=== PATIENT | female | born 2000 | race Hispanic/Latino ===

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

== ENCOUNTER 2019-12-19 19:50 | Emergency (ER) | payer SELFPAY ==
[2019-12-19 20:14] LABS: BASOPHILS % (AUTO) 0.2 % (0.0-5.0); EOSINOPHILS % (AUTO) 0.4 % (0.0-8.0); LYMPHOCYTES % (AUTO) 17.3 % (21.0-51.0); MEAN CORPUSCULAR HEMOGLOBIN 29.9 pg (27.0-33.0); MEAN CORPUSCULAR HGB CONC 33.4 g/dL (32.0-36.0); MEAN CORPUSCULAR VOLUME 89.5 fL (80-100); MONOCYTES % (AUTO) 6.7 % (3.0-13.0); NEUTROPHILS % (AUTO) 74.7 % (40.0-77.0); PLATELET COUNT (AUTO) 157 K/uL (130-400); RED BLOOD CELL COUNT(AUTO) 4.58 MIL/uL (4.00-5.50); WHITE BLOOD COUNT (AUTO) 12.3 K/uL (4.8-10.8)
[2019-12-19] MEDS ORDERED: SODIUM CHLORIDE 0.9% 1000ML 1,000 ML IV ONE (20:18)
[2019-12-19] MEDS ORDERED: ONDANSETRON HCL 4 MG/2 ML VIAL ONE (20:20)
[2019-12-19] MEDS ORDERED: KETOROLAC TROMETHAMINE 30MG/ML ONE (20:20)
[2019-12-19] MEDS ORDERED: LORAZEPAM 2 MG/ML 1 ML VIAL ONE (20:21)
[2019-12-19 20:31] LABS: CREATININE 0.9 mg/dL (0.5-1.5); POTASSIUM 3.6 mmol/L (3.5-5.1)
[2019-12-19 20:36] LABS: ALBUMIN 4.2 g/dL (3.5-5.0); BILIRUBIN,TOTAL 0.4 mg/dL (0.2-1.0); TOTAL PROTEIN, SERUM 7.6 g/dL (6.0-8.3)
[2019-12-19] MEDS ORDERED: IOHEXOL 350 MG/ML 100ML INFUS..BTL IV ONE (21:08)
== END 2019-12-19 22:46 | disposition home or self-care (01) ==
LOC: EDH 19:50
DX: S20.212A Contusion of left front wall of thorax, initial encounter (principal); S00.03XA Contusion of scalp, initial encounter; S00.83XA Contusion of other part of head, initial encounter; F43.0 Acute stress reaction; F31.9 Bipolar disorder, unspecified; F41.9 Anxiety disorder, unspecified; Z72.0 Tobacco use; Y04.2XXA Assault by strike against or bumped into by another person, initial encounter; Y93.89 Activity, other specified; Y92.89 Other specified places as the place of occurrence of the external cause; Y99.8 Other external cause status
CPT/HCPCS: 36415; 70450; 70486; 71260; 72125; 74177; 80053; 81025; 85025; 96374; 96375; 99285; J1885; J2060; J2405; J7030; Q9967

== ENCOUNTER 2020-02-03 13:30 | Emergency (ER) | payer SELFPAY ==
[2020-02-03] MEDS ORDERED: LORAZEPAM 2 MG/ML 1 ML VIAL ONE (13:44)
[2020-02-03 14:11] LABS: CARBON DIOXIDE 23 mmol/L (21-32); CHLORIDE 103 mmol/L (101-111); CREATININE 0.8 mg/dL (0.5-1.5); GLOMERULAR FILTR. RATE CALC 97 mL/min (>60); GLUCOSE,RANDOM 103 mg/dL (70-105); POTASSIUM 3.1 mmol/L (3.5-5.1); SODIUM SERUM 138 mmol/L (136-145); UREA NITROGEN, BLOOD 10 mg/dL (7-18)
[2020-02-03 14:15] LABS: ACETAMINOPHEN 4 mcg/mL (10-30); ALANINE AMINOTRANSFERASE 20 U/L (12-78); ALBUMIN 4.2 g/dL (3.5-5.0); ALCOHOL, BLOOD < 3 mg/dL (0-10); ASPARTATE AMINOTRANSFERASE 16 U/L (10-37); BILIRUBIN,TOTAL 0.3 mg/dL (0.2-1.0); CREATINE KINASE, TOTAL 93 U/L (21-232); TOTAL PROTEIN, SERUM 7.9 g/dL (6.0-8.3)
[2020-02-03 14:16] LABS: BASOPHILS % (AUTO) 0.2 % (0.0-5.0); EOSINOPHILS % (AUTO) 0.6 % (0.0-8.0); HEMATOCRIT 38.5 % (36-48); LYMPHOCYTES % (AUTO) 30.2 % (21.0-51.0); MEAN CORPUSCULAR HEMOGLOBIN 29.8 pg (27.0-33.0); MEAN CORPUSCULAR HGB CONC 33.2 g/dL (32.0-36.0); MEAN CORPUSCULAR VOLUME 89.5 fL (80-100); MONOCYTES % (AUTO) 7.8 % (3.0-13.0); NEUTROPHILS % (AUTO) 60.9 % (40.0-77.0); PLATELET COUNT (AUTO) 159 K/uL (130-400); RED CELL DISTRIBUTION WIDTH 13.2 % (11.0-15.5); WHITE BLOOD COUNT (AUTO) 8.6 K/uL (4.8-10.8)
[2020-02-03 14:22] LABS: HCG,QUAL RESULT NEGATIVE (NEGATIVE)
[2020-02-03 14:27] LABS: APPEARANCE,URINE Cloudy (CLEAR); BILIRUBIN,URINE Negative (NEGATIVE); COLOR,URINE Yellow (YELLOW); GLUCOSE, URINE (UA) Negative (NEGATIVE); KETONES,URINE Negative (NEGATIVE); LEUKOCYTE ESTERASE ,URINE Large (NEGATIVE); NITRATE,URINE Negative (NEGATIVE); OCCULT BLOOD,URINE Negative (NEGATIVE); PH,URINE 7.5 (5.0-8.0); PROTEIN,URINE Negative (NEGATIVE); UROBILINOGEN,URINE 0.2 mg/dL (0.2-1.0)
[2020-02-03] MEDS ORDERED: POTASSIUM CHLORIDE 20 MEQ ERTAB PO ONE (14:29)
[2020-02-03 15:07] LABS: BACTERIA,URINE Few /HPF (None Seen); RBC,URINE None Seen /HPF (0-1)
[2020-02-03 15:55] LABS: AMPHET/METH SCREEN,URINE NEGATIVE (NEGATIVE); BARBITURATE SCREEN, URINE NEGATIVE (NEGATIVE); BENZODIAZEPINES SCREEN,URINE NEGATIVE (NEGATIVE); CANNABINOID SCREEN,URINE POSITIVE (NEGATIVE); COCAINE SCREEN,URINE NEGATIVE (NEGATIVE); OPIATE SCREEN,URINE NEGATIVE (NEGATIVE); PHENCYCLIDINE SCREEN,URINE NEGATIVE (NEGATIVE)
== END 2020-02-03 16:16 | disposition home or self-care (01) ==
LOC: EDH 13:30
DX: S40.011A Contusion of right shoulder, initial encounter (principal); F41.9 Anxiety disorder, unspecified; N30.00 Acute cystitis without hematuria; F32.9 Major depressive disorder, single episode, unspecified; Z72.0 Tobacco use; V89.2XXA Person injured in unspecified motor-vehicle accident, traffic, initial encounter; Y93.89 Activity, other specified; Y92.488 Other paved roadways as the place of occurrence of the external cause; Y99.8 Other external cause status
CPT/HCPCS: 36415; 70450; 80053; 80305; 81001; 81025; 82550; 85025; 87088; 96374; 99284; G0481; J2060

== ENCOUNTER 2020-10-12 19:52 | Observation (INO) | payer MEDICAID, OTHER ==
[~2020-10-12] VITALS: Ht 162.6 cm; Wt 78.9 kg
[2020-10-12 20:35] LABS: APPEARANCE,URINE Clear (CLEAR); BILIRUBIN,URINE Negative (NEGATIVE); COLOR,URINE Yellow (YELLOW); GLUCOSE, URINE (UA) Negative (NEGATIVE); KETONES,URINE Negative (NEGATIVE); LEUKOCYTE ESTERASE ,URINE Moderate (NEGATIVE); NITRATE,URINE Negative (NEGATIVE); OCCULT BLOOD,URINE Negative (NEGATIVE); PROTEIN,URINE Negative (NEGATIVE)
[2020-10-12 20:45] LABS: AMPHET/METH SCREEN,URINE NEGATIVE (NEGATIVE); BARBITURATE SCREEN, URINE NEGATIVE (NEGATIVE); BENZODIAZEPINES SCREEN,URINE NEGATIVE (NEGATIVE); CANNABINOID SCREEN,URINE NEGATIVE (NEGATIVE); COCAINE SCREEN,URINE NEGATIVE (NEGATIVE); OPIATE SCREEN,URINE NEGATIVE (NEGATIVE); PHENCYCLIDINE SCREEN,URINE NEGATIVE (NEGATIVE)
[2020-10-12 21:06] LABS: AMORPHOUS SEDIMENT,UR Many /LPF (None Seen); BACTERIA,URINE Few /HPF (None Seen); MUCUS,URINE Few LPF (None Seen); RBC,URINE None Seen /HPF (0-1); SQUAMOUS EPITHELIAL CELL,UR Moderate /HPF (0-2)
[2020-10-12] MEDS ORDERED: CEFTRIAXONE SODIUM 1 GM IVP SCH (22:00)
[2020-10-12] MEDS ORDERED: LACTATED RINGERS 1000ML 1,000 ML IV SCH (22:00)
[2020-10-12] MEDS ORDERED: TERBUTALINE SULFATE VIAL 1MG/ML SQ SCH (22:00)
[2020-10-12] MEDS ORDERED: CEFTRIAXONE SODIUM 1 GM ONE (22:03)
[2020-10-12] MEDS: TERBUTALINE SULFATE VIAL 1MG/ML SQ SCH (23:11)
[2020-10-13] MEDS: TERBUTALINE SULFATE VIAL 1MG/ML SQ SCH
[2020-10-13] MEDS ORDERED: ACETAMINOPHEN EXTRA STRENGTH 500 MG TABLET PO SCH
[2020-10-13] MEDS ORDERED: ACETAMINOPHEN EXTRA STRENGTH 500 MG TABLET ONE (00:05)
== END 2020-10-13 01:35 | disposition home or self-care (01) ==
LOC: EDH 19:52 → LDH 19:53
PROVIDERS: ADMIT Obstetrics & Gynecology; ATTEND Obstetrics & Gynecology
DX: O60.03 Preterm labor without delivery, third trimester (principal); O21.2 Late vomiting of pregnancy; O99.343 Other mental disorders complicating pregnancy, third trimester; F41.9 Anxiety disorder, unspecified; F31.9 Bipolar disorder, unspecified; Z3A.32 32 weeks gestation of pregnancy
CPT/HCPCS: 59025; 80305; 81001; 87088; 96361; 96372 ×2; 96374; 99284; G0378 ×6; J0696; J3105; 96360

== ENCOUNTER 2023-01-22 19:57 | Emergency (ER) | payer BC, MEDICAID ==
[~2023-01-22] VITALS: Ht 165.1 cm; Wt 49.9 kg
[2023-01-22 20:41] LABS: BASOPHILS % (AUTO) 0.4 % (0.0-5.0); EOSINOPHILS % (AUTO) 0.4 % (0.0-8.0); HEMATOCRIT 40.2 % (36-48); LYMPHOCYTES % (AUTO) 29.1 % (21.0-51.0); MEAN CORPUSCULAR HEMOGLOBIN 28.8 pg (27.0-33.0); MEAN CORPUSCULAR HGB CONC 33.8 g/dL (32.0-36.0); MONOCYTES % (AUTO) 10.2 % (3.0-13.0); NEUTROPHILS % (AUTO) 59.5 % (40.0-77.0); PLATELET COUNT (AUTO) 199 K/uL (130-400); RED BLOOD CELL COUNT(AUTO) 4.73 MIL/uL (4.00-5.50); RED CELL DISTRIBUTION WIDTH 12.5 % (11.0-15.5); WHITE BLOOD COUNT (AUTO) 11.4 K/uL (4.8-10.8)
[2023-01-22 20:51] LABS: APPEARANCE,URINE CLEAR (CLEAR); BILIRUBIN,URINE NEGATIVE (NEGATIVE); COLOR,URINE COLORLESS (YELLOW); GLUCOSE, URINE (UA) NEGATIVE (NEGATIVE); KETONES,URINE NEGATIVE (NEGATIVE); LEUKOCYTE ESTERASE ,URINE 250 Leu/uL (NEGATIVE); NITRATE,URINE NEGATIVE (NEGATIVE); OCCULT BLOOD,URINE NEGATIVE (NEGATIVE); PH,URINE 7.5 (5.0-8.0); PROTEIN,URINE NEGATIVE (NEGATIVE); UROBILINOGEN,URINE 0.2 mg/dL (0.2-1.0)
[2023-01-22 20:53] LABS: CREATININE 0.7 mg/dL (0.5-1.5); POTASSIUM 3.4 mmol/L (3.5-5.1)
[2023-01-22 21:06] LABS: ALBUMIN 4.1 g/dL (3.5-5.0)
[2023-01-22 21:11] LABS: BACTERIA,URINE FEW /HPF (None Seen); MUCUS,URINE RARE LPF (None Seen); SQUAMOUS EPITHELIAL CELL,UR FEW /HPF (0-2)
[2023-01-22] MEDS ORDERED: MORPHINE 2 MG SYG IM ONE (22:00)
[2023-01-22] MEDS ORDERED: ONDANSETRON 4MG INJ IVP ONE (22:00)
[2023-01-22] MEDS ORDERED: CEFTRIAXONE 1G VIAL IVPB ONE (22:00)
[2023-01-22] MEDS ORDERED: 0.9%NACL 1000ML 1,000 ML IV ONE ×2 (22:00→22:30)
[2023-01-22] MEDS ORDERED: MORPHINE 4 MG SYG ONE (22:15)
[2023-01-23] MEDS ORDERED: CEPH PO (01:09)
[2023-01-23] MEDS ORDERED: PREN-67 PO (01:09)
[2023-01-23] MEDS ORDERED: ONDA4TAB10 PO (01:09)
[2023-01-23 01:34] VITALS: BP 103/60
== END 2023-01-23 01:36 | disposition home or self-care (01) ==
LOC: EDH 19:57
DX: O23.41 Unspecified infection of urinary tract in pregnancy, first trimester (principal); N39.0 Urinary tract infection, site not specified; O21.9 Vomiting of pregnancy, unspecified; Z3A.01 Less than 8 weeks gestation of pregnancy; Z79.899 Other long term (current) drug therapy
CPT/HCPCS: 99284; 96365; 76801; 96361; 96375; 80053; 84702; 83690; 85025; 87088; 81001; 36415; 96372; J7030 ×2; J0696; J2405; J2270

== ENCOUNTER 2024-04-28 09:41 | Observation (INO) | payer BC, MEDICAID ==
[~2024-04-28] VITALS: Ht 165.1 cm; Wt 58.1 kg
[~2024-04-28 09:41] MED LIST: CEPH PO; ONDA-243 PO; PREN-67 PO
[2024-04-28] MEDS: 0.9%NACL 1000ML 1,000 ML IV ONE (10:11)
[2024-04-28] MEDS: ondanSETRON 4MG INJ IVP ONE (10:11)
[2024-04-28] MEDS ORDERED: HALOPERIDOL INJ 5 MG/ML VIAL IV ONE (10:30)
[2024-04-28 10:35] LABS: BASOPHILS # (AUTO) 0.02 K/uL (0.00-0.20); BASOPHILS % (AUTO) 0.2 % (0.0-5.0); EOSINOPHILS # (AUTO) 0.03 K/uL (0.00-0.70); EOSINOPHILS % (AUTO) 0.4 % (0.0-8.0); HEMATOCRIT 35.5 % (36-48); IMMATURE GRANULOCYTE ABSOLUTE 0.03 K/uL (0-1); LYMPHOCYTES # (AUTO) 1.6 K/uL (1.0-4.8); LYMPHOCYTES % (AUTO) 18.8 % (21.0-51.0); MEAN CORPUSCULAR HEMOGLOBIN 28.9 pg (27.0-33.0); MEAN CORPUSCULAR HGB CONC 35.5 g/dL (32.0-36.0); MEAN CORPUSCULAR VOLUME 81.4 fL (79-99); MONOCYTES # (AUTO) 0.8 K/uL (0.1-1.0); MONOCYTES % (AUTO) 9.6 % (3.0-13.0); NEUTROPHILS % (AUTO) 70.6 % (40.0-77.0); PLATELET COUNT (AUTO) 201 K/uL (130-400); RED BLOOD CELL COUNT(AUTO) 4.36 MIL/uL (4.00-5.50); RED CELL DISTRIBUTION WIDTH 14.2 % (11.0-15.5); WHITE BLOOD COUNT (AUTO) 8.4 K/uL (4.8-10.8)
[2024-04-28 10:52] LABS: ALBUMIN 3.7 g/dL (3.5-5.0); CREATININE 0.6 mg/dL (0.5-1.0)
[2024-04-28 10:54] LABS: POTASSIUM 2.6 mmol/L (3.5-5.1)
[2024-04-28 11:10] LABS: BILIRUBIN,DIRECT 0.3 mg/dL (0.0-0.3); BILIRUBIN,TOTAL 0.9 mg/dL (0.2-1.0); TOTAL PROTEIN, SERUM 7.3 g/dL (6.0-8.3)
[2024-04-28 12:32] LABS: AMPHET/METH SCREEN,URINE NEGATIVE (NEGATIVE); BARBITURATE SCREEN, URINE NEGATIVE (NEGATIVE); BENZODIAZEPINES SCREEN,URINE NEGATIVE (NEGATIVE); CANNABINOID SCREEN,URINE POSITIVE (NEGATIVE); COCAINE SCREEN,URINE NEGATIVE (NEGATIVE); OPIATE SCREEN,URINE NEGATIVE (NEGATIVE); PHENCYCLIDINE SCREEN,URINE NEGATIVE (NEGATIVE)
[2024-04-28] MEDS: morPHINE 4 MG SYG IVP ONE ×2 (12:46)
[2024-04-28] MEDS: PoTASSium chloRIDE 20MEQ ER 20 MEQ ERTAB PO ONE (13:41)
[2024-04-28] MEDS: MAGNESIUM OXIDE 400 MG TABLET PO ONE (13:42)
[2024-04-28] MEDS: LACTATED RINGERS 1000ML 1,000 ML IV ONE (15:19)
[2024-04-28 17:48] VITALS: O2SAT 100
[2024-04-28 18:00] VITALS: BP 120/63; PULSE 56; RESP 16; TEMP 97.6
[2024-04-28] MEDS: LACTATED RINGERS IV SCH (18:47)
[2024-04-28] MEDS: POTASSIUM CHLORIDE IV SCH (18:47)
[2024-04-28] MEDS: PANTOPrazole 40 MG/VIAL IVP ONE (18:47)
[2024-04-28] MEDS ORDERED: acetaMINOPHEN WITH coDEINE 1 TAB TAB PO PRN (19:30)
[2024-04-28] MEDS ORDERED: acetaMINOPHEN 325 MG TAB PO PRN (19:30)
[2024-04-28 20:00] VITALS: BP 114/65; PULSE 72; RESP 20; TEMP 98
[2024-04-28 23:25] VITALS: BP 121/66; PULSE 56; RESP 20; TEMP 98
[2024-04-29 03:43] VITALS: BP 103/51; PULSE 59; RESP 18; TEMP 98.1
[2024-04-29 07:00] VITALS: BP 108/51; PULSE 65; RESP 20; TEMP 98.2
[2024-04-29] MEDS: metoCLOPRAmide 5 MG TABLET PO SCH (07:07)
[2024-04-29] MEDS: ondanSETRON 4MG INJ IVP PRN (07:08)
[2024-04-29 07:37] LABS: POTASSIUM 4.2 mmol/L (3.5-5.1)
[2024-04-29] MEDS: PANTOPrazole 40 MG/VIAL IVP SCH (08:08)
[2024-04-29] MEDS: M.V.I. IV [ADULT] 10 ML, FOLic ACID 5 MG/ML VIAL 1 MG, THIAMINE HCL 100 MG in 0.9%NACL ... IV SCH (08:09)
[2024-04-29] MEDS: COMPOUND IV REFRIGERATED 1 EACH MISC ONE (08:17)
[2024-04-29 11:05] VITALS: BP 121/63; PULSE 82; RESP 18; TEMP 98
== END 2024-04-29 15:50 | disposition home or self-care (01) ==
LOC: EDH 09:41 → EDHIP 16:13 → INTOOBSV 16:13 → WSH 18:00
PROVIDERS: ADMIT Obstetrics & Gynecology; ATTEND Obstetrics & Gynecology
DX: O21.0 Mild hyperemesis gravidarum (principal); O26.891 Other specified pregnancy related conditions, first trimester; R19.7 Diarrhea, unspecified; E87.6 Hypokalemia; R10.2 Pelvic and perineal pain; O99.341 Other mental disorders complicating pregnancy, first trimester; F41.9 Anxiety disorder, unspecified; F32.A Depression, unspecified; Z3A.08 8 weeks gestation of pregnancy; Z86.2 Personal history of diseases of the blood and blood-forming organs and certain disorders involving the immune mechanism; Z79.899 Other long term (current) drug therapy
CPT/HCPCS: 99285; 96366 ×2; 96365; 76801; 96375 ×2; 96361; 80076; 80048; 80305; 84702; 83690; 85025; 36415 ×2; 93005; 96367; 96376; 80051; J7120 ×3; J7030 ×2; J2405 ×2; J2270; J2470 ×2; J3480 ×3; G0378; J3411; J3490; 96374